=== PATIENT | female | born 1950 | race Caucasian/White ===

== ENCOUNTER 2018-01-10 09:51 | Emergency (ER) | payer MEDICARE, OTHER ==
[~2018-01-10] VITALS: Ht 160 cm; Wt 55.5 kg
[2018-01-10 09:57] VITALS: BP 125/61; TEMP 98.2
[2018-01-10] MEDS ORDERED: BUSPAR DIVIDOSE15 MG PO (10:04)
[2018-01-10] MEDS ORDERED: TEMOVATE0.05% TOP (10:05)
[2018-01-10] MEDS ORDERED: PROCTOCREAM-HC2.5% TOP (10:05)
[2018-01-10] MEDS ORDERED: SINGULAIR 110 MG/TAB PO (10:06)
[2018-01-10] MEDS ORDERED: COZAAR 50MG50 MG/TAB PO (10:06)
[2018-01-10] MEDS ORDERED: VALTREX 50500 MG/TAB PO (10:06)
[2018-01-10] MEDS ORDERED: PREVACID 30MG30 M1 PO (10:06)
[2018-01-10] MEDS ORDERED: OGEN 0.6250.75 MG PO (10:07)
[2018-01-10] MEDS ORDERED: FLONASEALLERGY NS (10:07)
[2018-01-10] MEDS ORDERED: NORVASC 10MG10 MG PO (10:08)
[2018-01-10] MEDS ORDERED: KLONOPIN 0.5MG0.5 MG PO (10:08)
[2018-01-10] MEDS ORDERED: KLONOPIN 1MG1 MG PO (10:08)
[2018-01-10] MEDS ORDERED: MYCOLOG CREAM 115 GM TOP (10:09)
[2018-01-10] MEDS ORDERED: AMBIEN 10MG10 MG PO (10:09)
[2018-01-10] MEDS ORDERED: BACTROBAN NASA0.9 GM TOP (10:09)
[2018-01-10] MEDS ORDERED: PROAIR HFA0.09 MG/AC INH (10:09)
[2018-01-10] MEDS ORDERED: VITAMIN C500 MG PO (10:10)
[2018-01-10] MEDS ORDERED: MULTIVITAMIN1 CTB PO (10:10)
[2018-01-10] MEDS ORDERED: CALCIUM 600MG+D1 TAB PO (10:10)
[2018-01-10] MEDS ORDERED: MERIBIN5 MG PO (10:11)
[2018-01-10] MEDS ORDERED: GLUCOSAMINE & C1 TAB PO (10:12)
[2018-01-10] MEDS ORDERED: PROBIOTIC FORMU1 CAP PO (10:12)
[2018-01-10] MEDS ORDERED: REFRESH TEARS 330 ML OU (10:12)
[2018-01-10] MEDS ORDERED: FLEXERIL 1010 MG/TAB PO (11:03)
[2018-01-10] MEDS ORDERED: MEDROL 4MG DOSPA4 MG PO (11:03)
[2018-01-10 11:30] VITALS: PULSE 67
== END 2018-01-10 11:29 | disposition home or self-care (01) ==
LOC: COL.ER 09:51
DX: M54.12 Radiculopathy, cervical region (principal); I10 Essential (primary) hypertension; Z79.51 Long term (current) use of inhaled steroids; Z79.52 Long term (current) use of systemic steroids
CPT/HCPCS: J1885

== ENCOUNTER → 2019-07-25 | Outpatient (CLI) | payer MEDICARE, OTHER ==
[~2019-07-25] MED LIST: AMBIEN 10MG10 MG PO; BACTROBAN NASA0.9 GM TOP; BUSPAR DIVIDOSE15 MG PO; CALCIUM 600MG+D1 TAB PO; COZAAR 50MG50 MG/TAB PO; FLEXERIL 1010 MG/TAB PO; FLONASEALLERGY NS; GLUCOSAMINE & C1 TAB PO; KLONOPIN 0.5MG0.5 MG PO; KLONOPIN 1MG1 MG PO; MEDROL 4MG DOSPA4 MG PO; MERIBIN5 MG PO; MULTIVITAMIN1 CTB PO; MYCOLOG CREAM 115 GM TOP; NORVASC 10MG10 MG PO; OGEN 0.6250.75 MG PO; PREVACID 30MG30 M1 PO; PROAIR HFA0.09 MG/AC INH; PROBIOTIC FORMU1 CAP PO; PROCTOCREAM-HC2.5% TOP; REFRESH TEARS 330 ML OU; SINGULAIR 110 MG/TAB PO; TEMOVATE0.05% TOP; VALTREX 50500 MG/TAB PO; VITAMIN C500 MG PO
== END ==
LOC: COL.RAD 13:00
DX: M47.812 Spondylosis without myelopathy or radiculopathy, cervical region (principal); M48.02 Spinal stenosis, cervical region

== ENCOUNTER → 2019-09-19 | Outpatient (CLI) | payer MEDICARE, OTHER | LOC: COL.RAD 09:00 | DX: Z01.818 Encounter for other preprocedural examination (principal); M75.100 Unspecified rotator cuff tear or rupture of unspecified shoulder, not specified as traumatic ==

== ENCOUNTER → 2021-09-02 | Outpatient (CLI) | payer MEDICARE, OTHER ==
[2021-09-02 09:46] LABS: CREATININE, serum 0.74 mg/dL (0.57-1.11)
== END ==
LOC: COL.LAB 09:10
PROVIDERS: Neurological Surgery
DX: I10 Essential (primary) hypertension (principal)

== ENCOUNTER → 2021-09-18 | Outpatient (CLI) | payer MEDICARE, OTHER | LOC: COL.RAD 08:30 | DX: N73.8 Other specified female pelvic inflammatory diseases (principal); R59.0 Localized enlarged lymph nodes ==

== ENCOUNTER → 2021-10-17 | Outpatient (CLI) | payer MEDICARE | LOC: COL.RAD 09:37 | DX: Z12.2 Encounter for screening for malignant neoplasm of respiratory organs (principal); I25.10 Atherosclerotic heart disease of native coronary artery without angina pectoris; Z87.891 Personal history of nicotine dependence ==

== ENCOUNTER 2022-11-16 08:52 | Inpatient (IN) | payer MEDICARE, OTHER ==
[~2022-11-16] VITALS: Ht 160 cm; Wt 63.3 kg
[2022-11-16] VITALS (11 sets, daily range): BP systolic 93–137; BP diastolic 42–62; PULSE 88–117; TEMP 98.7–99.8
[2022-11-16 09:48] LABS: HEMATOCRIT 44.5 % (37.0-47.0); HEMOGLOBIN 15.1 g/dl (12.5-16.0); MEAN CELL VOLUME 87 fl (80.0-100.0); MEAN CORPUSCULAR HEMOGLOBIN 30 pg (27-31); MEAN CORPUSCULAR HGB CONC 34 g/dl (33.0-37.0); MEAN PLATELET VOLUME 10.4 fl (7.4-10.4); PLATELET COUNT 406 K/mm3 (130-400); RED BLOOD COUNT 5.11 M/mm3 (4.10-5.30); REDCELL DISTRIBUTION WIDTH-CV 13.8 % (11.5-14.5)
[2022-11-16 10:15] LABS: ALBUMIN 3.2 gm/dL (3.4-4.8); BILIRUBIN,TOTAL 0.6 mg/dL (0.2-1.2); C-REACTIVE PROTEIN 24.69 mg/dL (0.00-0.50); CALCIUM 9.8 mg/dL (8.4-10.2); CREATININE, serum 2.09 mg/dL (0.57-1.11); POTASSIUM 3.7 mmol/L (3.5-4.5); TOTAL PROTEIN 7.1 gm/dL (6.2-8.1)
[2022-11-16 10:45] LABS: BAND 4 % (0-10); LYMPHOCYTE 30 % (20.0-51.0); NEUTROPHILS 59 % (42.0-75.2); PLATELET ESTIMATE INCREASED (NORMAL)
[2022-11-16] MEDS ORDERED: ADDERALL XR20 MG PO (12:35)
[2022-11-16] MEDS ORDERED: LIPITOR20 MG PO (12:35)
[2022-11-16] MEDS ORDERED: ESTRACE 1MG1 MG/TAB PO (12:40)
[2022-11-16] MEDS ORDERED: PROTONIX 40MG T40 MG PO (12:40)
[2022-11-16] MEDS ORDERED: LEXAPRO 10MG10 MG PO (12:43)
--- NOTE | 2022-11-16 14:11 | NUR ---
Patient admitted to room 343. She is Alert & oriented. Her spouse at bedside. Admission completed. Patient med rec up dated to the best of my ability. Patient did not bring a medication list & not feeling well enough to be fully involved in answering my questions about her medications. SHe reports [place] care doctor is in [place], but does she a doctor in [place] if needed. ordered NG tube patient did have some dificulty with insertion due to being anxious, morphine was used to assist in placement after was made aware of difficulty with insertion, the morphine did relax patient enough to get NG placed. Ng liquid output obtained. She is resting now.
--- NOTE | 2022-11-16 14:20 | NUR ---
rounded plan of care reviewed with patient, She denies needs at this time. NG remains to [facility].
--- NOTE | 2022-11-16 15:40 | NUR ---
Patient taken to the Or with Pacu nurses. Patient spouse has gone home & phine number left
[2022-11-17] VITALS (737 sets, daily range): BP systolic 69–113; BP diastolic 39–54; PULSE 86–103; TEMP 98.4–100.1; O2SAT 35–100
--- NOTE | 2022-11-17 00:43 | NUR ---
0035 PTS BLOOD PRESSURE ON BP MACHINE RESULTED AT 70S/40S RN GOT MANUAL BLOOD PRESSURE WAS BLOOD PRESSURE WAS STILL SOFT AT 72/47. MD HAIRSTON NOTIFIED NEW ORDERS PLACED.
--- NOTE | 2022-11-17 01:35 | NUR ---
0130 MD HAIRSTON NOTIFIED OF PTS BLOOD PRESSURE AFTER 500 CC BOLUS STILL BEING 74/45. CURRENTLY FLUIDS D5NS W 20MEQ K INCREASED TO 150ML AN HOUR. RN TO NOTIFY IF ANYTHING CHANGES AND IF BLOOD PRESSURE REMAINS LOW AT 0400 VITALS.
--- NOTE | 2022-11-17 02:13 | NUR ---
0140 PT BLADDER SCANNED WITH 95 ML IN BLADDER
--- NOTE | 2022-11-17 04:01 | NUR ---
0358 MD HAIRSTON NOTIFIED OF PTS BLOOD PRESSURE STILL 70S/40S SEE ORDERS FOR NEW ORDERS
--- NOTE | 2022-11-17 04:38 | NUR ---
8660 RN RECEIVED CALL FROM MD HAIRSTON TO PLACE A CONSULT TO HOSPITALIST AND CALL CHANNEL MARKETING COORDINATOR DANNIE GILMAN [phone] THIS RN CONTACTED CHANNEL MARKETING COORDINATOR.
--- NOTE | 2022-11-17 05:47 | NUR ---
0500 NEW IV STARTED IN L AC, LABS DRAWN WHILE STARTING IV. PTS IV IN L HAND REMOVED DUE TO REDNESS. 0515 ICU NURSE AT BEDSIDE TO ASSIST TAKING PATIENT DOWN TO ICU ROOM [id number] BEDSIDE REPORT GIVEN TO MACHINE RIVETER
[2022-11-17 06:15] LABS: MEAN CELL VOLUME 91 fl (80.0-100.0); MEAN CORPUSCULAR HGB CONC 33 g/dl (33.0-37.0); MEAN PLATELET VOLUME 10.7 fl (7.4-10.4); RED BLOOD COUNT 3.67 M/mm3 (4.10-5.30); REDCELL DISTRIBUTION WIDTH-CV 13.9 % (11.5-14.5)
[2022-11-17 06:19] LABS: HEMATOCRIT 33.4 % (37.0-47.0); MEAN CORPUSCULAR HEMOGLOBIN 30 pg (27-31)
[2022-11-17 06:20] LABS: HEMOGLOBIN 10.9 g/dl (12.5-16.0); PLATELET COUNT 210 K/mm3 (130-400)
[2022-11-17 06:36] LABS: CALCIUM 7.3 mg/dL (8.4-10.2); CREATININE, serum 1.58 mg/dL (0.57-1.11)
[2022-11-17 06:40] LABS: BAND 62 % (0-10); LYMPHOCYTE 4 % (20.0-51.0); METAMYELOCYTE 4 % (0-0); NEUTROPHILS 26 % (42.0-75.2)
[2022-11-17 06:41] LABS: PLATELET ESTIMATE NORMAL (NORMAL)
[2022-11-17 06:43] LABS: TOXIC GRANULATION PRESENT
--- NOTE | 2022-11-17 06:58 | NUR ---
HELPED NURSE TRINIDAD TAKE PT DOWNSTAIR IN BED. PT SHEET TRASNFERED FROM SURG BED TO ICU 08. PT BLOOD PRESSURE LOW 89/45 (51) ON ARRIVAL. NURSE STATED PT HAS BEEN TRENDING LOW SINCE 29. NURSE TRINIDAD STATED THAT SHE NOTIFIED PHYSICIAN WITH ORDERS FOR A FLUID BOLUS AND IF PT CONTINUES TO TREND LOW TO SEND PT TO ICU. PT IS IN PAIN, AND MORPHINE NEEDED FOR PAIN CONTROL. PT IS NOW RESTING IN BED, WITH LEVOPHED STARTED AND TITRATED , NS AND LR BOLUSED PER ORDERS.
--- NOTE | 2022-11-17 08:00 | NUR ---
PT HAVING PICC LINE PLACED AT THIS TIME. PT STATES HER FINE IS TOLERABLE AT THIS TIME AND DOES NOT NEED PAIN MEDICATION. PT NOT VOIDED SINCE YESTERDAY AT APPROX 1800. PT STATES SHE WILL ATTEMPT TO VOID VIA BEDPAN ONCE PICC IS PLACED. PT ADVISED THAT IF SHE IS UNABLE TO VOID, THEN HAGER WILL BE PLACED. PT AGREEABLE TO THIS. NG TUBE PRESENT AND TO LIS. SLIGHT OUTPUT PRESENT FROM NG; GREEN IN COLOR BUT NOT ENOUGH TO MEASURE. PT AND UPDATED ON PLAN OF CARE. ALL QUESTIONS ANSWERED APPROPRIATELY.
[2022-11-17 09:34] LABS: COLLECTION METHOD CLEAN CATCH
[2022-11-17 09:53] LABS: MUCOUS Present (NOT PRESENT); URINE BACTERIA Occasional /hpf (NONE SEEN); URINE RBC 0-2 /hpf (0-2)
[2022-11-17 09:55] LABS: URINE APPEARANCE Clear (CLEAR/HAZY); URINE COLOR Amber (YELLOW); URINE GLUCOSE Negative (NEGATIVE); URINE KETONE Negative (NEGATIVE); URINE PROTEIN(semi-quant) 1+ (NEGATIVE); URINE UROBILINOGEN 0.2 E.U/dL (0.2-1.0)
[2022-11-17 09:56] LABS: URINE BLOOD Negative (NEGATIVE); URINE NITRATE Positive (NEGATIVE)
--- NOTE | 2022-11-17 14:53 | NUR ---
SW met with patient to complete intake. Patient reports that she lives at home with her Michoacano ([phone]) in [place]. She is normally independent with her ADL's and does not utilize any DME to assist with mobility. Patient does not utilize any home oxygen. PCP is Dr. Christina Khan MD out of and she utilizes [facility] pharmacy. She reports that she does have a DPOA-HC established listing her as her agent.
--- NOTE | 2022-11-17 16:00 | NUR ---
HAGER CATHETER PLACED FOR ACCURATE I/O DUE TO USE OF VASOPRESSOR. PT TOLERATED WELL AND OFFERS NO COMPLAINTS.
--- NOTE | 2022-11-17 20:30 | NUR ---
PT ASSESSMENT COMPLETE. PT IS ALERT AND ORIENTED. PT IS DROWSY AND LETHARGIC. PT STATES SHE HAS 9/10 ABDOMINAL PAIN AND THAT SHE IS JUST UNCOMFORTABLE. PAIN MEDICATIONS GIVEN PER ORDER. PT TEMP IS 100.1, WILL NOTIFY PROVIDER IF IT CONTINUES TO INCREASE. PTS VITAL SIGNS ARE STABLE AND DRIPS ARE RUNNING ACCORDING TO DRIP TITRATION FLOW SHEET. PTS CALL LIGHT IS WITHIN REACH
[2022-11-18] VITALS (1181 sets, daily range): BP systolic 71–115; BP diastolic 49–70; PULSE 87–184; TEMP 97.6–98.6; O2SAT 75–100
--- NOTE | 2022-11-18 01:20 | NUR ---
PT HAS HAD TWO SMALL RUNS OF SVT WITH HEART RATE GOING UP TO 168. RUNS LAST APRROXIMATELY 3-5 SECONDS. PT DENIES CHEST PAIN OR PALPATATIONS. PT STATES SHE IS JUST SLEEPY AND HAVING TROUBLE SLEEPING. JUDAH GILMAN AWARE. BENEDRYL GIVEN FOR SLEEP.
--- NOTE | 2022-11-18 02:25 | NUR ---
PTS BP IS ABOVE PARAMATERS FOR LEVOPHED. PT TITRATED DOWN AND NOW PLACED IN STAND BY.
--- NOTE | 2022-11-18 03:15 | NUR ---
PT BEGAN TO GO BETWEEN SVT AND SINUS RHYTHM MORE FREQUENT. JUDAH GILMAN NOTIFIED AND ORDERED BMP AND MAGNESIUM LABS AND A 12 LEAD EKG. PT SUSTAINING IN THE 150-180s WITH SHORT CONVERSIONS TO SINUS RHYTHM. THE EKG READ A.FIB RVR. JUDAH GILMAN NOTIFIED. NEW ORDERS FOR A CARDIZEM DRIP, HEPARIN DRIP, AND AND INCREASE IN FLUID RATE. PT REMAINED IN THE 160s-180s. PROVIDER CARDIZEM INCREASED. AFTER SPEAKING WITH JUDAH GILMAN ABOUT CONCERNS OF HEPARIN DRIP WITH PTS RECENT ABDOMINAL SURGERY, PROVIDER DECIDED THE RISK FOR CLOTS WITH THE A.FIB RVR OUTWEIGHED POSSIBLE BLEEDING RISK. PT CURRENTLY SHOWS NO SIGNS OR SYMPTOMS OF BLEEDING. 0348- PTS DRIPS WERE TITRATED AND INITIATED PER ORDERS (VIEW DRIP TITRATION FLOW SHEET) HEART RATE NOW RANGING BETWEEN 110-140. PT ALERT AND ORIENTED. BLOOD PRESSURE AND O2 SAT WNL.
[2022-11-18 04:02] LABS: HEMOGLOBIN 10.6 g/dl (12.5-16.0); MEAN CELL VOLUME 93 fl (80.0-100.0); MEAN CORPUSCULAR HEMOGLOBIN 29 pg (27-31); MEAN CORPUSCULAR HGB CONC 31 g/dl (33.0-37.0); MEAN PLATELET VOLUME 10.5 fl (7.4-10.4); PLATELET COUNT 159 K/mm3 (130-400); RED BLOOD COUNT 3.64 M/mm3 (4.10-5.30); REDCELL DISTRIBUTION WIDTH-CV 13.9 % (11.5-14.5)
[2022-11-18 04:16] LABS: PARTIAL THROMBOPLASTIN TIME 37.2 SECONDS (26.0-37.0)
[2022-11-18 04:18] LABS: CALCIUM 6.8 mg/dL (8.4-10.2); CREATININE, serum 0.59 mg/dL (0.57-1.11); MAGNESIUM 1.4 mg/dL (1.6-2.6); POTASSIUM 3.7 mmol/L (3.5-4.5)
[2022-11-18 04:49] LABS: BAND 35 % (0-10); LYMPHOCYTE 1 % (20.0-51.0); NEUTROPHILS 62 % (42.0-75.2)
[2022-11-18 04:50] LABS: HYPOCHROMIA 2+; PLATELET ESTIMATE NORMAL (NORMAL)
--- NOTE | 2022-11-18 06:00 | NUR ---
ASKED PT IF THEY WERE EXPERIENCING PAIN. PT RATED PAIN ON 5-6/10. ASKED PT IF THEY WOULD LIKE THEIR PAIN MEDICATIONS. PT REFUSED PAIN MEDICATIONS.
--- NOTE | 2022-11-18 06:23 | NUR ---
PT HAD A DIFFERENCE GREATER THAN 5% IN WEIGHT CHANGE. SCD MACHINE WAS ADDED TO BED AFTER WEIGHT ON 11/17/22.
[2022-11-18 07:41] LABS: CALCIUM 6.7 mg/dL (8.4-10.2); CREATININE, serum 0.58 mg/dL (0.57-1.11); POTASSIUM 3.7 mmol/L (3.5-4.5)
[2022-11-18 08:17] LABS: TROPONIN-I 0.276 ng/mL (0.00-0.033)
--- NOTE | 2022-11-18 08:35 | NUR ---
Patient alert but drowsy this morning. Complains of gerd like symptoms. Having scant output from the OG. looked at wall suction Patient noted to have several episodes where heart rate dropped to the 20's and 30's briefly before returning to the 100's. Patient alert at these times. BP remained stable. Dr. Gomez and Colleen, RN notified. Will come to see patient at this time.
--- NOTE | 2022-11-18 09:42 | NUR ---
Initiated Amiodarone bolus and obseved almost immediately a pause and a brief heart rate in the 20's before returning to the 120's. Bolus was stopped and Cardiology notified. Will continue with the amiodarone Per. Dr. Wiley. Cardiac pads attached to patient during infusion.
--- NOTE | 2022-11-18 21:00 | NUR ---
PT ASSESSMENT COMPLETED. PT CONTINUES TO BE IN A.FIB/FLUTTER RVR. HEART RATE RANGES FROM 110-140. DRIPS RUNNING PER FLOWSHEET. PT IS ALERT AND ORIENTED AND ABLE TO ANSWER QUESTIONS APPROPRIATELY. PT REQUESTED PAIN MEDICATION. CALL LIGHT WITHIN REACH
[2022-11-19] VITALS (1057 sets, daily range): BP systolic 105–118; BP diastolic 49–66; PULSE 70–115; TEMP 98–98.3; O2SAT 59–100
[2022-11-19 05:37] LABS: HEMOGLOBIN 10.9 g/dl (12.5-16.0); MEAN CELL VOLUME 92 fl (80.0-100.0); MEAN CORPUSCULAR HEMOGLOBIN 29 pg (27-31); MEAN CORPUSCULAR HGB CONC 32 g/dl (33.0-37.0); MEAN PLATELET VOLUME 11.4 fl (7.4-10.4); PLATELET COUNT 150 K/mm3 (130-400); RED BLOOD COUNT 3.73 M/mm3 (4.10-5.30); REDCELL DISTRIBUTION WIDTH-CV 14.4 % (11.5-14.5)
[2022-11-19 05:38] LABS: HEMATOCRIT 34.2 % (37.0-47.0)
[2022-11-19 05:49] LABS: BAND 8 % (0-10); EOSINOPHIL 1 % (0-4); HYPOCHROMIA 2+; LYMPHOCYTE 5 % (20.0-51.0); NEUTROPHILS 85 % (42.0-75.2); PLATELET ESTIMATE NORMAL (NORMAL)
[2022-11-19 05:54] LABS: ALBUMIN 1.4 gm/dL (3.4-4.8); BILIRUBIN,TOTAL 0.3 mg/dL (0.2-1.2); CREATININE, serum 0.54 mg/dL (0.57-1.11); POTASSIUM 3.2 mmol/L (3.5-4.5)
--- NOTE | 2022-11-19 10:00 | NUR ---
Heparin remains subtherapeutic for the last several lab checks. Heparin increased per protocol and has been running consistently at the correct rate. All possible variables have been assessed including drawing with a lab stick and not from the PICC line. However, hep xa's continue to be subtherapeutic. Hospitalist and pharmacy aware. Will attempt to swich to eliquis pending surgical approval.
--- NOTE | 2022-11-19 15:40 | NUR ---
Patient tolerating NG tube well; no nausua or GERD symptoms reported. Discussed plan of care with Dr. Horvath. Will clamp OG tube and can initiate PO meds. Discussed with cardiology; will Initiate PO Amiodarone and Eliquis and D/c IV amiodarone and heparin.
--- NOTE | 2022-11-19 17:00 | NUR ---
Resting in bed; denies any pain at this time. No nausea since clamping OG tube. Will continue to monitor.
--- NOTE | 2022-11-19 19:45 | NUR ---
Received report from APRIL Rothman.
--- NOTE | 2022-11-19 20:30 | NUR ---
Patient resting quietly in bed watching TV. Vitals within normal limits; continues to receive 2L oxygen via nasal cannula, tolerating well. She reports a mild headache - scheduled tylenol administered and bright lights turned down. NG to R nare is clamped at this time. Patient states she feels gas moving freely but that she is not uncomfortable. Pills given whole and orally, tolerated well. Midline and RLQ incisions are clean, dry, intact, and WIRE WORKER. Two bandaids noted to LUQ lap sites.
[2022-11-20] VITALS (668 sets, daily range): BP systolic 103–110; BP diastolic 38–54; PULSE 65–78; TEMP 98–98.9; O2SAT 71–100
[2022-11-20 05:05] LABS: HEMOGLOBIN 10.4 g/dl (12.5-16.0); MEAN CELL VOLUME 88 fl (80.0-100.0); MEAN CORPUSCULAR HEMOGLOBIN 29 pg (27-31); MEAN CORPUSCULAR HGB CONC 33 g/dl (33.0-37.0); MEAN PLATELET VOLUME 10.8 fl (7.4-10.4); PLATELET COUNT 147 K/mm3 (130-400); RED BLOOD COUNT 3.55 M/mm3 (4.10-5.30); REDCELL DISTRIBUTION WIDTH-CV 14.6 % (11.5-14.5)
[2022-11-20 05:17] LABS: HEMATOCRIT 31.1 % (37.0-47.0)
[2022-11-20 05:21] LABS: CALCIUM 7.4 mg/dL (8.4-10.2); CREATININE, serum 0.55 mg/dL (0.57-1.11); POTASSIUM 3.5 mmol/L (3.5-4.5)
[2022-11-20 05:30] LABS: BAND 5 % (0-10); LYMPHOCYTE 8 % (20.0-51.0); NEUTROPHILS 84 % (42.0-75.2)
[2022-11-20 05:31] LABS: PLATELET ESTIMATE NORMAL (NORMAL)
--- NOTE | 2022-11-20 08:57 | NUR ---
SW met with patient to [facility]. Patient reports that she lives at home with her Simon ([phone]) in [place]. Patient states that Simon has to help her with all of her ADL's and IADL's. She utilizes both a shower chair and standard walker at home to assist with showering and ambulation. Patient denies being able to drive. PCP is and she utilizes [facility] for prescriptions. She does not have a DPOA-HC established at this time and does not wish to create one until she has time to talk with her about it. Patient provided education and verbalizes her agreement.
--- NOTE | 2022-11-20 11:21 | NUR ---
SW met with patient to discuss home health vs. post acute rehab. Patient is open to either option pending her progress with therapy and doesn't "care where". Patient verbalizes that at the very least she will need home health.
--- NOTE | 2022-11-20 14:01 | NUR ---
SW made referral to [facility] for them to begin following the patient.
--- NOTE | 2022-11-20 16:35 | NUR ---
PT REPORT GIVEN TO APRIL SCANLON AND PT LEFT UNIT TO MEDICAL AT [id number]
--- NOTE | 2022-11-20 20:28 | NUR ---
PT USED BEDPAN FOR MOD FORMED STOOL. PT REPORTS FEELING WEAK AND DIDN'T WANT TO TRY USING BSC. DISCUSSED WITH PT IMPORTANCE OF GETTING OOB. SHE PROMPTLY ROLLED HER EYES IN RESPONSE. MEDICATED WITH HS MEDS INCLUDING OXYCODONE 5MG PO FOR PAIN TO ABD 5/10. HAS SMALL MIDLINE WITH HILLARY INTACT, 2 LAP SITES WITH BANDAID. FOUND PILLS IN PTS BED, PT DENIES THESE ARE HERS, PLACED IN MED DISPOSAL IN MED ROOM. HAS RT PICC, IVF INFUSING WITHOUT PROBLEM. PT WEARING SCDS. ABLE TO TURN SELF TO SIDE.
[2022-11-21 00:17] VITALS: BP 113/50; PULSE 82; TEMP 97.7
--- NOTE | 2022-11-21 00:30 | NUR ---
PT AWAKE, HAS TURNED HERSELF TO HER BACK. DENIES NEEDS AT THIS TIME.
--- NOTE | 2022-11-21 03:50 | NUR ---
PT REFUSES SCHEDULED ES TYLENOL, DENIES PAIN AT THIS TIME. HAS TURNED SELF TO BACK AND IS ABLE TO PULL SELF UP IN BED. DENIES NAUSEA, TAKING CLEAR LIQUIDS WITHOUT PROBLEM. ALLEY PATENT.
[2022-11-21 03:51] VITALS: BP 111/43; PULSE 77; TEMP 98.3
[2022-11-21 07:49] VITALS: BP 134/57; PULSE 76; TEMP 98.2
--- NOTE | 2022-11-21 08:30 | NUR ---
rounded, plan of care reviewed. Discussed Ivf rate & puentes removal. Will discuss with hospitalist. Will progress diet
--- NOTE | 2022-11-21 08:45 | NUR ---
called and made aware of patient heart rate. electrostatic powder coating technician called and reported heart rate up into 130. No new orders at this time & am morning medication to be given and will monitor.
--- NOTE | 2022-11-21 10:00 | NUR ---
Patient assisted up to chair. She was a 2 assist with alot of encouragement. She reports feeling to weak to get up, but did well once standing. Full bed bath provided with fresh linens. Assisted with hair combing and oral cares. India Lynn per orders. PICC to Int. Po intake enoucaraged. Pain medication given for her abdominal pain & headache. Scds ble. Will continue to monitor & encourage activity.
[2022-11-21 10:59] LABS: CALCIUM 7.3 mg/dL (8.4-10.2); CREATININE, serum 0.51 mg/dL (0.57-1.11); POTASSIUM 3.4 mmol/L (3.5-4.5)
[2022-11-21 11:21] VITALS: BP 122/58; PULSE 84; TEMP 97.9
--- NOTE | 2022-11-21 11:29 | NUR ---
Patient back to the bed with therapy. She reports being exhausted. K+ replacement per orders. Lasix as ordered. Patient not intersted in her lunch tray. Will monitor.
--- NOTE | 2022-11-21 12:02 | NUR ---
Patient up to bedside commode, She voided & had a large BM. Assisted with pericares. Patient reports feeling better after. Spoke to , she is rounding, no new orders. Will monitor.
[2022-11-21 15:16] VITALS: BP 123/50; PULSE 74; TEMP 97.8
--- NOTE | 2022-11-21 19:21 | NUR ---
Patient resting in bed. Requesting puentes be placed again, education given on why puentes was removed. Patient has been voiding frequently post lasix using bedside commode. She tolerated mashed potatoes for dinner. Po intake encouraged. Bedside report to lore
--- NOTE | 2022-11-21 20:30 | NUR ---
PT IN BATHROOM, HAVING LOOSE STOOLS AND VOIDING WITHOUT PROBLEM. HS MEDS GIVEN INCLUDING OXYCODONE 5MG PO FOR PAIN. HILLARY INTACT TO ABD. RT PICC INT. PTS HOME MEDS TAKEN TO PHARMACY.
[2022-11-21 20:34] VITALS: BP 129/52; PULSE 82; TEMP 98.1
[2022-11-22] VITALS (7 sets, daily range): BP systolic 112–129; BP diastolic 43–56; PULSE 71–82; TEMP 98–98.5
--- NOTE | 2022-11-22 03:21 | NUR ---
PT RESTING WITH EYES CLOSED, DID NOT WAKE FOR SCHEDULED ES TYLENOL AT THIS TIME.
--- NOTE | 2022-11-22 05:45 | NUR ---
LABS DRAWN FROM PICC LINE, FLAGYL INFUSING WITHOUT PROBLEM. PT DENIES NEED FOR PAIN MEDS AT THIS TIME.
[2022-11-22 06:42] LABS: MEAN CELL VOLUME 86 fl (80.0-100.0); MEAN CORPUSCULAR HEMOGLOBIN 29 pg (27-31); MEAN CORPUSCULAR HGB CONC 34 g/dl (33.0-37.0); MEAN PLATELET VOLUME 12.1 fl (7.4-10.4); PLATELET COUNT 126 K/mm3 (130-400); RED BLOOD COUNT 3.76 M/mm3 (4.10-5.30); REDCELL DISTRIBUTION WIDTH-CV 14.6 % (11.5-14.5)
[2022-11-22 06:45] LABS: HEMATOCRIT 32.3 % (37.0-47.0)
[2022-11-22 06:53] LABS: CALCIUM 7.1 mg/dL (8.4-10.2); CREATININE, serum 0.5 mg/dL (0.57-1.11); POTASSIUM 3.3 mmol/L (3.5-4.5)
[2022-11-22 08:41] LABS: BAND 5 % (0-10); EOSINOPHIL 1 % (0-4); NEUTROPHILS 74 % (42.0-75.2)
[2022-11-22 08:42] LABS: LYMPHOCYTE 10 % (20.0-51.0)
[2022-11-22 08:43] LABS: ANISOCYTOSIS 1+; PLATELET ESTIMATE DECREASED (NORMAL)
--- NOTE | 2022-11-22 11:15 | NUR ---
PATIENT LAYING IN BED WITH EYES CLOSED AND ROOM LIGHTS OFF. PATIENT APPEARS TO HAVE NO S/S OR NEEDS OR CONCERNS AT THIS TIME.
--- NOTE | 2022-11-22 17:18 | NUR ---
PATIENT OXYGEN TURNED OFF AND HE IS SITTING UPRIGHT EATING A BROWNIE AND ICE CREAM AT THIS TIME. CALL LIGHT REMAINS IN LAP AND PATIENT STATES UNDERSTANDING ABOUT CALLING THIS NURSE WITH ANY SOB.
--- NOTE | 2022-11-22 20:44 | NUR ---
PRESENTED TO ROOM. PT IS IN BED SLEEPING WITH EYES CLOSED AND SNORING. VITALS ARE WITHIN NORMAL LIMITS. NO SIGNS OF SHORTNESS OF BREATH. PT LEFT TO SLEEP AND DID NOT WAKE FOR TX. NO WHEEZING HEARD. BS ARE SLIGHTLY DIMINISHED T/O
[2022-11-23] VITALS (12 sets, daily range): BP systolic 112–126; BP diastolic 41–62; PULSE 70–93; TEMP 97.5–98.9
--- NOTE | 2022-11-23 03:21 | NUR ---
0248 - PT ASLEEP UPON ARRIVAL TO ROOM. PT AWAKENED. SHE IS COMPLAINING OF R SIDE PAIN AT THIS TIME. WHEN LISTENING TO BREATH SOUNDS AND ASSESSING PT FLINCH IN PAIN BECAUSE OF R SIDE OF ABD. SHE ASKED ABOUT PAIN MEDS. STATED THAT I WOULD NOTIFY RN OF PT'S PAIN. SHE DID NOT WANT HER TREATMENT AT THIS TIME. EDUCATED PT WHEN HER NEXT TREATMENT WOULD BE, AND THAT THEY WERE AVAILABLE TO HER IF SHE NEEDED. PT VERBALIZED UNDERSTANDING. NOTIFIED RN OF PATIENT'S PAIN AND SHE WAS ASKING FOR HER PAIN MEDS. RN VERBALIZED UNDERSTANDING.
[2022-11-23 06:45] LABS: CALCIUM 7.1 mg/dL (8.4-10.2); CREATININE, serum 0.49 mg/dL (0.57-1.11); POTASSIUM 3.8 mmol/L (3.5-4.5)
[2022-11-23 08:37] LABS: HEMOGLOBIN 10.6 g/dl (12.5-16.0); MEAN CELL VOLUME 89 fl (80.0-100.0); MEAN CORPUSCULAR HEMOGLOBIN 29 pg (27-31); MEAN CORPUSCULAR HGB CONC 33 g/dl (33.0-37.0); MEAN PLATELET VOLUME 11.5 fl (7.4-10.4); PLATELET COUNT 163 K/mm3 (130-400); RED BLOOD COUNT 3.65 M/mm3 (4.10-5.30); REDCELL DISTRIBUTION WIDTH-CV 14.7 % (11.5-14.5)
[2022-11-23 08:45] LABS: HEMATOCRIT 32.3 % (37.0-47.0)
--- NOTE | 2022-11-23 08:47 | NUR ---
made aware of critical elevated wbc,ct order obtained.
--- NOTE | 2022-11-23 09:26 | NUR ---
Patient assisted back to bed. She reports being to uncomfortable in chair to sit any longer. She ate about half of her breakfast. Denies nausea. She was up to the bathroom this am & voided and did have a loose stool. Walker used, steady on her feet. Assisted with pericares. Picc to INT. Abdomen incisions open to air. Marco A intact to midline. Reports itching to insisions. Will monitor.
[2022-11-23 09:53] LABS: BAND 9 % (0-10); EOSINOPHIL 1 % (0-4); LYMPHOCYTE 4 % (20.0-51.0); MYELOCYTE 2 % (0-0); NEUTROPHILS 78 % (42.0-75.2)
[2022-11-23 09:54] LABS: PLATELET ESTIMATE NORMAL (NORMAL)
--- NOTE | 2022-11-23 10:40 | NUR ---
Patietn trying to drink her oral contrast, but reports it is making her nauseated. Iv zofran given per orders, educated her on the importance of trying to drink. Will see if zofran helps.
--- NOTE | 2022-11-23 11:07 | NUR ---
Patient to CT scan with electrical controls technician.
--- NOTE | 2022-11-23 12:25 | NUR ---
made aware CT scan completed. Noo at this time for potential drain placement.
--- NOTE | 2022-11-23 12:51 | NUR ---
Spoke to and radiology about abcess drain placement. Nancy radiology nurse assisted to set up procedure. Plans for 1330. Radiology busy today, but trying to fit her inbetween scheduled procedures.
--- NOTE | 2022-11-23 13:45 | NUR ---
Patient to CT for drain placement, will await her return
--- NOTE | 2022-11-23 14:00 | NUR ---
PT WAS GIVEN 1 MG VERSED AND 50 MCG FENTANYL FOR DISCOMFORT. MEDS GIVEN THRU THE PICC LINE, NOTED POSITIVE BLOOD RETURN PRIOR TO MEDS.
--- NOTE | 2022-11-23 15:15 | NUR ---
Spoke to on phone about patient, plan of care reviewed. Patietn dinner ordered. She reports appetite. She will be npo oooo. Patient was assisted to the bathroom, voided. No stool. Will monitor.
--- NOTE | 2022-11-23 16:50 | NUR ---
Patient given education on lasix, importance of taking. She was willing to take, but not thrilled. She did well with dinner, and ate her entire tray. Denies the need for pain medication at this time.
--- NOTE | 2022-11-23 18:28 | NUR ---
Patient exhausted from voiding frequently post lasix. Pain elevated from getting up and down. medicaiton per orders. Will monitor
--- NOTE | 2022-11-23 18:57 | NUR ---
bedside report to demetrio to resume cares
--- NOTE | 2022-11-23 20:58 | NUR ---
pt resting in bed. meds given and assessment complete. vss and tele in place. abdominal incisions are cdi. picc to jennifer flushes well w good blood return. fall precautions in place. call light in reach. no needs at this time.
[2022-11-24] VITALS (14 sets, daily range): BP systolic 90–120; BP diastolic 42–58; PULSE 72–80; TEMP 97.7–98.6
[2022-11-24 04:47] LABS: HEMOGLOBIN 10.4 g/dl (12.5-16.0); MEAN CELL VOLUME 87 fl (80.0-100.0); MEAN CORPUSCULAR HEMOGLOBIN 29 pg (27-31); MEAN CORPUSCULAR HGB CONC 34 g/dl (33.0-37.0); MEAN PLATELET VOLUME 11.6 fl (7.4-10.4); PLATELET COUNT 168 K/mm3 (130-400); RED BLOOD COUNT 3.55 M/mm3 (4.10-5.30); REDCELL DISTRIBUTION WIDTH-CV 14.6 % (11.5-14.5)
[2022-11-24 04:54] LABS: HEMATOCRIT 30.7 % (37.0-47.0)
--- NOTE | 2022-11-24 05:00 | NUR ---
called nelida SO on pts critical wbc of 25.8. will continue abx pt is currently on and update day shift.
--- NOTE | 2022-11-24 06:03 | NUR ---
pt had an uneventful night. denies pain. picc caps changed this am. pt has been npo since midnight. no needs this morning. call light in reach.
[2022-11-24 06:16] LABS: BAND 8 % (0-10); EOSINOPHIL 1 % (0-4); LYMPHOCYTE 6 % (20.0-51.0); METAMYELOCYTE 1 % (0-0); NEUTROPHILS 81 % (42.0-75.2); PLATELET ESTIMATE NORMAL (NORMAL)
--- NOTE | 2022-11-24 14:59 | NUR ---
Facility Sales And Admin met with patient to review discharge plan. SW advised patient that an IPR screen has been placed and then provided patient information about IPR vs SNF as patient is unsure if she can tolerate three hours of therapy a day. Patient does feel that she cannot return home in her current condition. Patient advised she will talk with her spouse patrick about local SNFs and follow up with HADLEY.
--- NOTE | 2022-11-24 19:33 | NUR ---
pt resting in bed trying to sleep. assessment complete. pt reports pain around incisional sites, scheduled tylenol given. vss and tele in place. abdominal incisions are cdi. accordian drain to right side w no output. scds to ble. fall precautions in place. right buttock is reddened, barrier cream applied. reports passing gas and having some incontinent stools today. PICC to jennifer, purple lumen difficulty flushing. pt denies any needs. call light in reach.
[2022-11-25 00:11] VITALS: BP 110/47; PULSE 77; TEMP 98.7
--- NOTE | 2022-11-25 00:30 | NUR ---
pt reports sleeping well, denies pain. no needs at this time.
[2022-11-25 03:27] VITALS: BP 120/51; PULSE 70; TEMP 98.2
[2022-11-25 07:00] LABS: HEMOGLOBIN 10.1 g/dl (12.5-16.0); MEAN CELL VOLUME 89 fl (80.0-100.0); MEAN CORPUSCULAR HEMOGLOBIN 29 pg (27-31); MEAN CORPUSCULAR HGB CONC 32 g/dl (33.0-37.0); MEAN PLATELET VOLUME 11.8 fl (7.4-10.4); PLATELET COUNT 224 K/mm3 (130-400); RED BLOOD COUNT 3.52 M/mm3 (4.10-5.30)
[2022-11-25 07:02] LABS: HEMATOCRIT 31.2 % (37.0-47.0)
[2022-11-25 07:12] LABS: CALCIUM 7.3 mg/dL (8.4-10.2); CREATININE, serum 0.5 mg/dL (0.57-1.11); POTASSIUM 3.4 mmol/L (3.5-4.5)
[2022-11-25 07:29] VITALS: BP 119/53; PULSE 63; TEMP 97.9
[2022-11-25 07:54] LABS: BAND 1 % (0-10); HYPOCHROMIA 1+; LYMPHOCYTE 4 % (20.0-51.0); MYELOCYTE 1 % (0-0); NEUTROPHILS 91 % (42.0-75.2); PLATELET ESTIMATE NORMAL (NORMAL)
--- NOTE | 2022-11-25 08:08 | NUR ---
Patients bilateral upper extremities cap refil <3, bilateral lower extremities >3. Upon assessment, left pedal pulse was bounding. Will reasses patients right pedal pulse as it was difficult to palpate at time of assessment. Bed alarm was engaged at this time and call light in reach.
[2022-11-25 11:20] VITALS: BP 117/48; PULSE 74; TEMP 97.7
--- NOTE | 2022-11-25 15:42 | NUR ---
Conciliator followed up with patient to review discharge plan. Patient again does not feel she could tolerate three hours of therapy on the IPR unit. SW provided Medicare.gov list of SNFs and patient stated she will review it.
[2022-11-25 16:00] VITALS: BP 105/44; PULSE 70; TEMP 98.5
--- NOTE | 2022-11-25 18:36 | NUR ---
PATIENT ALERT AND ORIENTED X4. VSS. PATIENT HERE FOR SBO, INCARCERATED HERNIA. LAP SITES X2 WITH HILLARY INTACT. MIDLINE INCISION WITH HILLARY INTACTS, SCANT AMOUNT OF DRAINAGE (DRESSING APPLIED). LOW TRANSVERSE INCISION WITH SKIN GLUE, CDI. PATIENT IS TOLERATING SOLIDS. PATIENT REPORTS BURNING AND ITCHING IN RAHEEM AREA. WILL CONTACT HOSPITALIST FOR DIRECTION. CALL LIGHT IN REACH, BED ALARM ON.
--- NOTE | 2022-11-25 20:27 | NUR ---
pt resting in bed, reports feeling tired this afternoon. meds given and assessment complete. midline incision w gauze dressing in place, some drainage is present. a small knot is palpable just below the incision. x2 lap sites w karoline are open to air. transverse incision is cdi. drain still has no output in it. scds to ble. picc to jennifer flushes well w good blood return. vss and tele in place. fall precautions implemented. no needs at this time. call light in reach.
[2022-11-25 20:30] VITALS: BP 105/48; PULSE 72; TEMP 98.5
[2022-11-26] VITALS (7 sets, daily range): BP systolic 105–128; BP diastolic 41–63; PULSE 66–76; TEMP 98–99.5
[2022-11-26 07:37] LABS: HEMOGLOBIN 10.1 g/dl (12.5-16.0); MEAN CELL VOLUME 87 fl (80.0-100.0); MEAN CORPUSCULAR HEMOGLOBIN 29 pg (27-31); MEAN CORPUSCULAR HGB CONC 34 g/dl (33.0-37.0); MEAN PLATELET VOLUME 10.8 fl (7.4-10.4); RED BLOOD COUNT 3.47 M/mm3 (4.10-5.30); REDCELL DISTRIBUTION WIDTH-CV 14.8 % (11.5-14.5)
[2022-11-26 07:42] LABS: PLATELET COUNT 335 K/mm3 (130-400)
[2022-11-26 07:49] LABS: CALCIUM 7.4 mg/dL (8.4-10.2); CREATININE, serum 0.5 mg/dL (0.57-1.11); POTASSIUM 3.3 mmol/L (3.5-4.5)
--- NOTE | 2022-11-26 08:14 | NUR ---
CRITICAL WBC REPORTED TO DR. BRYSON.
[2022-11-26 08:32] LABS: BAND 3 % (0-10); LYMPHOCYTE 2 % (20.0-51.0); NEUTROPHILS 91 % (42.0-75.2); PLATELET ESTIMATE NORMAL (NORMAL)
--- NOTE | 2022-11-26 15:59 | NUR ---
Alterations Workroom Clerk met with patient to follow up on SNF placement. Patient is still reviewing options. Later in the afternoon, HADLEY followed up with patient's , Michoacano who advised they would like to have a referral sent to [facility]. HADLEY contacted Cesario at [facility] and faxed referral.
--- NOTE | 2022-11-26 18:12 | NUR ---
PATIENT TOLERATING ORAL INTAKE. PICC TO RIGHT UPPER ARM, PURPLE LUMEN FLUSHES BUT NOT WELL. RED LUMEN FLUSHES WITH GOOD BLOOD RETURN. PATIENT HAS HAD SEVERAL LOOSE STOOLS, AND HAS BEEN INCONTINENT OF URINE AND STOOL THROUGHOUT SHIFT. NYSTATIN CREAM APPLIED TO RAHEEM AREA.
--- NOTE | 2022-11-26 21:09 | NUR ---
Patient A/O, head to toe assessment done, see shift assessment, denies pain or discomfort, PICC to right upper arm both flushes well, purple port doesn't have good blood return, pericare done applied nystatin cream cream per order, denies further needs, call light and personal items within reach, will continue to monitor.
[2022-11-27] VITALS (7 sets, daily range): BP systolic 118–144; BP diastolic 45–67; PULSE 66–81; TEMP 97.5–98.8
--- NOTE | 2022-11-27 04:12 | NUR ---
Dressing change at this time with 4x4 gauze and tape, noted scant amount of serous sanguinuous drainage.
[2022-11-27 05:22] LABS: MEAN CELL VOLUME 90 fl (80.0-100.0); MEAN CORPUSCULAR HGB CONC 32 g/dl (33.0-37.0); MEAN PLATELET VOLUME 10.5 fl (7.4-10.4); RED BLOOD COUNT 3.45 M/mm3 (4.10-5.30); REDCELL DISTRIBUTION WIDTH-CV 14.7 % (11.5-14.5)
[2022-11-27 05:31] LABS: CALCIUM 7.5 mg/dL (8.4-10.2); CREATININE, serum 0.53 mg/dL (0.57-1.11); MAGNESIUM 1.4 mg/dL (1.6-2.6); POTASSIUM 3.1 mmol/L (3.5-4.5)
[2022-11-27 05:43] LABS: HEMATOCRIT 31.1 % (37.0-47.0); HEMOGLOBIN 9.9 g/dl (12.5-16.0); MEAN CORPUSCULAR HEMOGLOBIN 29 pg (27-31); PLATELET COUNT 460 K/mm3 (130-400)
--- NOTE | 2022-11-27 06:16 | NUR ---
Called Dr. Nathan for WBC critical result which is 20.8.
[2022-11-27 06:39] LABS: BAND 2 % (0-10); LYMPHOCYTE 6 % (20.0-51.0); METAMYELOCYTE 1 % (0-0); NEUTROPHILS 86 % (42.0-75.2); PLATELET ESTIMATE INCREASED (NORMAL)
--- NOTE | 2022-11-27 08:04 | NUR ---
PATIENT OFF OF FLOOR FOR CT OF ABDOMEN
--- NOTE | 2022-11-27 08:25 | NUR ---
0700 Student nurse recieved report from primary nurse Kristen. Patient care coodinated. 0740 Pt sitting up in chair. Head to toe completed at this time (see Shift Assessment). Pt reports "I haven't really ate anything because everything is running through me." No complaints at this time, call light within reach. Will continue to monitor.
--- NOTE | 2022-11-27 08:44 | NUR ---
0700 Student nurse recieved report from primary nurse Talya at this time. patient care coordinated at this time. 0710 Patient sitting up in the chair at this time. Assessment completed at this time (see shift asssessment). Patient denies any pain, call light with in reach. Will continue to monitor.
--- NOTE | 2022-11-27 10:17 | NUR ---
Pt c/o back pain in the chair. Requested to move to bed. Student nurse assisted pt into bed for comfort. Call light within reach, will continue to monitor.
--- NOTE | 2022-11-27 13:46 | NUR ---
Toll Bridge Operator spoke with Joanne at [facility] who advised they would like to follow and continue to get updates. Patient not stable for discharge at this time.
--- NOTE | 2022-11-28 00:25 | NUR ---
Report received from RN Migdalia. Upon entering pt's room at 1915, she reports having trush, and when pt's mouth was assessed, white matter vuilding up on tongue. This was notified to the provider and new orders were placed. Shift assessment around 0. A&Ox4. Abdomen with drain on Right side withminimal discharge in bag. Dressing in place in hypogastrium is CDI. Incision with edges well approximated on RLQ is CDI. X2 karoline on LUQ and LLQ are CDI. All medication given per emar. Pt refused pain med. SCDs were placed on BLE. KEIRA PICC line is CDI. Belongings and call light are within reach.
[2022-11-28 03:38] VITALS: BP 125/55; PULSE 68; TEMP 98.1
[2022-11-28 08:02] VITALS: BP 136/54; PULSE 69; TEMP 97.6
--- NOTE | 2022-11-28 09:30 | NUR ---
rounded this am. Spoke to Dr. Nathan & lab orders entered. Patient was up and worked with therapy this am, they assisted her to the bathroom, she voided. Patient ordered a light breakfast & tolerated without nausea. Picc to Rue flushing well with good blood return for lab & medications. RLQ abcess drain compressed & flushed with 5ml NS per orders, very scant amount of purulent drainage noted. Midline with upper karoline intact. Distal part of incision open. Wet to dry dressing changed with gauze per orders. Abdomen is soft. Will monitor.
[2022-11-28 09:41] LABS: HEMOGLOBIN 10.4 g/dl (12.5-16.0); MEAN CELL VOLUME 88 fl (80.0-100.0); MEAN CORPUSCULAR HEMOGLOBIN 29 pg (27-31); MEAN CORPUSCULAR HGB CONC 33 g/dl (33.0-37.0); MEAN PLATELET VOLUME 9.9 fl (7.4-10.4); RED BLOOD COUNT 3.57 M/mm3 (4.10-5.30); REDCELL DISTRIBUTION WIDTH-CV 14.6 % (11.5-14.5)
[2022-11-28 09:55] LABS: HEMATOCRIT 31.5 % (37.0-47.0); PLATELET COUNT 621 K/mm3 (130-400)
[2022-11-28 09:56] LABS: CALCIUM 7.3 mg/dL (8.4-10.2); CREATININE, serum 0.54 mg/dL (0.57-1.11); POTASSIUM 3.6 mmol/L (3.5-4.5)
--- NOTE | 2022-11-28 10:08 | NUR ---
critical high wbc called to
--- NOTE | 2022-11-28 10:30 | NUR ---
k+ replacement per protocol. Patient has visitors at bedside. hopeful to take shower this afternoon.
[2022-11-28 10:34] LABS: EOSINOPHIL 1 % (0-4); HYPOCHROMIA 1+; LYMPHOCYTE 4 % (20.0-51.0); NEUTROPHILS 89 % (42.0-75.2); PLATELET ESTIMATE INCREASED (NORMAL)
[2022-11-28 11:54] VITALS: BP 126/42; PULSE 64; TEMP 98.5
--- NOTE | 2022-11-28 14:10 | NUR ---
Patient resting in bed. She was assisted in shower. Patient feeling refreshed after, thankful for cares given. okayed for her to shower, lines & drains were covered. New dressing to Abcess drain site, drain sponge & tegaderm. New dressing to midline. Patient spouse trimmed and filed her nails. She combed her own hair and applied lotion. Will monitor.
[2022-11-28 16:19] VITALS: BP 135/54; PULSE 64; TEMP 98.1
--- NOTE | 2022-11-28 17:42 | NUR ---
Patient resting in bed. She feels tired. She did not like her dinner tray. She was willing to try her ensure shake with ice cream, ensure milkshake provided for patient. I did speak to about patient shortness of breath, she was going to speak with radiology about pleurl effusion in AM, she was also going to review in she needed more lasix in am. Will Monitor
[2022-11-28 19:26] VITALS: BP 136/53; PULSE 68; TEMP 98.2
--- NOTE | 2022-11-28 21:00 | NUR ---
PT IN BED. TAKES HS MEDS WITHOUT PROBLEM. TONGUE IS RED WITH FEW WHITE PATCHES, PT REPORTS TONGUE FEELS BETTER AFTER STARTING NYSTATIN LIQUID. HAS RT PICC, FLUSHES WELL WITH GOOD BLOOD RETURN. ABSCESS DRAIN WITH ACCORDIAN COMPRESSED, FLUSHED WITH 5CC NS, PURULENT DRAINAGE IN BAG. DRSG TO ABD D/I. DENIES PAIN AT THIS TIME.
[2022-11-28 23:52] VITALS: BP 127/53; PULSE 64; TEMP 97.4
[2022-11-29 03:49] VITALS: BP 140/54; PULSE 65; TEMP 97.9
--- NOTE | 2022-11-29 05:41 | NUR ---
EMPTIED 15CC THICK PURULENT DRAINAGE FROM WOUND BAG. IV ANTIBIOTIC INFUSING TO RT PICC WITHOUT PROBLEM.
[2022-11-29 06:35] LABS: MEAN CELL VOLUME 88 fl (80.0-100.0); MEAN CORPUSCULAR HGB CONC 33 g/dl (33.0-37.0); MEAN PLATELET VOLUME 10.1 fl (7.4-10.4); PLATELET COUNT 625 K/mm3 (130-400); RED BLOOD COUNT 3.36 M/mm3 (4.10-5.30)
[2022-11-29 06:45] LABS: HEMATOCRIT 29.7 % (37.0-47.0); HEMOGLOBIN 9.7 g/dl (12.5-16.0); MEAN CORPUSCULAR HEMOGLOBIN 29 pg (27-31)
[2022-11-29 06:50] LABS: CALCIUM 7.5 mg/dL (8.4-10.2); CREATININE, serum 0.52 mg/dL (0.57-1.11); POTASSIUM 3.8 mmol/L (3.5-4.5)
[2022-11-29 07:30] VITALS: BP 148/59; PULSE 66; TEMP 97.9
[2022-11-29 07:33] LABS: ANISOCYTOSIS 1+; LYMPHOCYTE 3 % (20.0-51.0); NEUTROPHILS 93 % (42.0-75.2); PLATELET ESTIMATE INCREASED (NORMAL)
--- NOTE | 2022-11-29 09:16 | NUR ---
PT REFUSING TO WORK WITH THERAPY THIS AM.
--- NOTE | 2022-11-29 10:42 | NUR ---
PT UP TO RECLINER AFTER BREAKFAST. PT WANTS TO GO BACK TO BED. PROVIDED EDUCATION ON THE NECESSITY OF SITTING UP RIGHT IN RECLINER FOR LONG POSSIBLE. PO PAIN MEDS GIVE FOR DISCOMFORT SITTING IN RECLINER. DR. BARKSDALE CONSULTED AND SEEING PT AT THIS TIME. ELIQUIS HELD FOR ALL DOSE UNTIL THORACENTISIS COMPLETE.
[2022-11-29 11:27] VITALS: BP 140/47; PULSE 68; TEMP 97.9
--- NOTE | 2022-11-29 12:38 | NUR ---
Printing Press Machine Operator faxed clinical updates to [facility].
[2022-11-29 16:01] VITALS: BP 141/51; PULSE 66; TEMP 97.7
--- NOTE | 2022-11-29 16:48 | NUR ---
WET TO DRY DRESSING CHANGE AND DRAIN FLUSHING COMPLETE X2 THIS SHIFT. PT TOLERATED WELL.
[2022-11-29 19:20] VITALS: BP 111/53; PULSE 71; TEMP 98.1
--- NOTE | 2022-11-29 21:30 | NUR ---
PT IN BED. HS MEDS GIVEN. REPLACED DRSG TO LOWER INCISION OPEN AREA WITH NEW GAUZE PACKING AND COVER. RAHEEM CARES GIVEN FOR YEAST AND APPLIED NYSTATIN CREAM. PT HAS MILD THRUSH TO TONGUE, ON NYSTATIN LIQUID.
[2022-11-30 00:11] VITALS: BP 130/53; PULSE 64; TEMP 97.8
[2022-11-30 03:55] VITALS: BP 123/59; PULSE 68; TEMP 97.8
--- NOTE | 2022-11-30 05:51 | NUR ---
PT ASSISTED TO BATHROOM, VOIDS. EMPTIED 15CC PURULENT DRAINAGE FROM ACCORDIAN DRAIN. PT ASSISTED BACK TO BED.
[2022-11-30 06:29] LABS: MEAN CELL VOLUME 87 fl (80.0-100.0); MEAN CORPUSCULAR HGB CONC 34 g/dl (33.0-37.0); PLATELET COUNT 679 K/mm3 (130-400); RED BLOOD COUNT 3.28 M/mm3 (4.10-5.30); REDCELL DISTRIBUTION WIDTH-CV 14.9 % (11.5-14.5)
[2022-11-30 06:31] LABS: HEMATOCRIT 28.5 % (37.0-47.0); HEMOGLOBIN 9.6 g/dl (12.5-16.0); MEAN CORPUSCULAR HEMOGLOBIN 29 pg (27-31)
[2022-11-30 06:40] LABS: CALCIUM 7.4 mg/dL (8.4-10.2); CREATININE, serum 0.56 mg/dL (0.57-1.11); POTASSIUM 3.5 mmol/L (3.5-4.5)
[2022-11-30 07:37] LABS: BAND 1 % (0-10); LYMPHOCYTE 6 % (20.0-51.0); NEUTROPHILS 89 % (42.0-75.2); PLATELET ESTIMATE INCREASED (NORMAL)
--- NOTE | 2022-11-30 08:00 | NUR ---
Pt awake and laying in bed. Morning medications administered per eMAR. Shift assessment completed. Telemetry remains on. PICC in RUE remains CDI. RUE remains larger than LUE; aware. Pt has x1 suture on L upper chest; plans to remove. Dressing on ABD (midline) remains CDI. ABD drain remains intact with no drainage noted. Denies c/o pain at this time. Call light within reach.
[2022-11-30 08:54] VITALS: BP 123/54; PULSE 70; TEMP 97.8
--- NOTE | 2022-11-30 10:00 | NUR ---
ABD drain flushed with 5cc per orders. ABD midline dressing replaced; packed with 4x4 per orders. Moderate amount of serosanguinous fluid noted.
--- NOTE | 2022-11-30 11:38 | NUR ---
A referral was sent to [facility]. Korey, with [facility], arrived to the hospital and met with the patient. Korey reports that they are able to accept the patient and that the patient is agreeable to going to [facility], but would like to talk to her first. The patient is planned to have a thoracentesis tomorrow morning.
[2022-11-30 12:25] VITALS: BP 118/59; PULSE 71; TEMP 97.3
[2022-11-30 16:25] VITALS: BP 149/49; PULSE 65; TEMP 97.9
[2022-11-30 19:40] VITALS: BP 125/51; PULSE 71; TEMP 98.4
--- NOTE | 2022-11-30 22:00 | NUR ---
PT IN BED. HS MEDS GIVEN. DRSG TO LOWER MIDLINE CHANGED, REPLACED 4X4 GAUZE PACKING AND COVERED WITH GAUZE. MINIMAL DRAINAGE NOTED. HAS RT ABSCESS DRAIN TO ACCORDIAN COMPRESSION, MINIMAL OUTPUT. RT PICC INTACT. PT DENIES SHORTNESS OF BREATH WITH ACTIVITY. THRUSH IMPROVED AND MINIMAL REDNESS TO VULVA. DENIES PAIN AT THIS TIME.
[2022-12-01 00:19] VITALS: BP 120/54; PULSE 68; TEMP 97.8
[2022-12-01 03:33] VITALS: BP 133/58; PULSE 71; TEMP 98.4
--- NOTE | 2022-12-01 06:00 | NUR ---
IV UNASYN INFUSING TO RT PICC WITHOUT PROBLEM. EMPTIED 15CC FROM DRAIN BAG. PT DENIES NEEDS AT THIS TIME.
[2022-12-01 06:28] LABS: MEAN CELL VOLUME 88 fl (80.0-100.0); MEAN CORPUSCULAR HGB CONC 33 g/dl (33.0-37.0); MEAN PLATELET VOLUME 9.5 fl (7.4-10.4); PLATELET COUNT 705 K/mm3 (130-400); RED BLOOD COUNT 3.39 M/mm3 (4.10-5.30); REDCELL DISTRIBUTION WIDTH-CV 15.2 % (11.5-14.5)
[2022-12-01 06:31] LABS: HEMATOCRIT 29.7 % (37.0-47.0); HEMOGLOBIN 9.8 g/dl (12.5-16.0); MEAN CORPUSCULAR HEMOGLOBIN 29 pg (27-31)
[2022-12-01 06:36] LABS: INR 1.4 (0.8-3.0); PROTHROMBIN TIME 16.5 SECONDS (9.7-12.8)
[2022-12-01 06:45] LABS: CALCIUM 7.4 mg/dL (8.4-10.2); CREATININE, serum 0.55 mg/dL (0.57-1.11); POTASSIUM 3.6 mmol/L (3.5-4.5)
[2022-12-01 07:14] LABS: BAND 5 % (0-10); LYMPHOCYTE 8 % (20.0-51.0); NEUTROPHILS 82 % (42.0-75.2)
[2022-12-01 07:15] LABS: OVALOCYTES 1+
[2022-12-01 08:00] VITALS: BP 113/72; PULSE 77; TEMP 98.1
[2022-12-01 09:51] LABS: PLEURAL FLUID APPEARANCE HAZY; PLEURAL FLUID COLOR YELLOW; PLEURAL FLUID RBC 2000 /mm3 (0-0); PLEURAL FLUID WBC 1347 /mm3
--- NOTE | 2022-12-01 11:03 | NUR ---
PT HAD THORACENTISIS THIS AM. APPROX 1100 MLS REMOVED FROM PT. FLUIDS SENT TO LAB PER ORDERS. CHEST XRAY COMPLETE. PT ACCEPTED TO [facility], DOES NOT WANT PT SENT TO [facility]. SOCIAL WORK AWARE.
[2022-12-01 12:00] VITALS: BP 132/48; PULSE 79; TEMP 97.8
[2022-12-01] MEDS ORDERED: ELIQUIS 5MG PO (12:35)
[2022-12-01] MEDS ORDERED: LASIX 20MG TABL20 MG PO (12:40)
[2022-12-01] MEDS ORDERED: CORDARONE200 MG/TAB PO (12:42)
--- NOTE | 2022-12-01 13:07 | NUR ---
NOTIFIED [facility] PA'S OF INCREASED BP, GAVE APRESSOLINE ORDERED. WILL RECHECK BP DURING ROUTINE BLOOD VITALS. GAVE CONTACT INFO FOR ITALIA, PT'S DAUGHTER, TO PAS FOR DR. BARKSDALE TO CONTACT HER.
--- NOTE | 2022-12-01 13:58 | NUR ---
Korey, at [facility], reports that they have a bed available today. SW notified the clinical team. The hospitalist talked to the patient and her about [facility] and they are not agreeable with the transfer. The patient is to discharge today, 12/01, to [facility] in [place]. Transportation was scheduled around 1540, via [facility]. HADLEY notified the patient, her , her RN, and Korey at [facility] of the transport time. HADLEY presented the EMS consent form to the patient. The patient verbalized understanding and gave HADLEY approval to sign the form on her behalf. No additional needs at this time.
--- NOTE | 2022-12-01 15:41 | NUR ---
PT TRANSFERED TO [facility] IN [place]. EMS TRANSFER. TRANSFERED WITH PICC LINE AND DRAIN INPLACE AT THIS TIME.
--- NOTE | 2022-12-01 15:54 | NUR ---
CALLED REPORT TO INGRIS CHEN @ [facility].
[2022-12-02 00:12] LABS: BODY FLUID PH (AMS) 8 (())
== END 2022-12-01 15:45 | DRG 329 ==
LOC: COL.ER 08:52 → ICU 11:31 → SURG 11:31 → COL.ER 11:31 → ICU 11-17 05:04 → SURG 11-17 05:04 → ICU 11-17 06:38 → SURG 11-20 16:06
PROVIDERS: Family Medicine; Internal Medicine; Internal Medicine Pulmonary Disease; Physician Assistant; Student in an Organized Health Care Education/Training Program; ADMIT Surgery
PROC: 0DB80ZZ Excision of Small Intestine, Open Approach (ICD-10-PCS; principal; 2022-11-16 16:15)
PROC: 0DNU4ZZ Release Omentum, Percutaneous Endoscopic Approach (ICD-10-PCS; 2022-11-16 16:15)
PROC: 0YQ70ZZ Repair Right Femoral Region, Open Approach (ICD-10-PCS; 2022-11-16 16:15)
PROC: 0YQ50ZZ Repair Right Inguinal Region, Open Approach (ICD-10-PCS; 2022-11-16 16:15)
PROC: 02H633Z Insertion of Infusion Device into Right Atrium, Percutaneous Approach (ICD-10-PCS; 2022-11-17)
PROC: 0JH602Z Insertion of Monitoring Device into Chest Subcutaneous Tissue and Fascia, Open Approach (ICD-10-PCS; 2022-11-20)
PROC: 0W9F30Z Drainage of Abdominal Wall with Drainage Device, Percutaneous Approach (ICD-10-PCS; 2022-11-23)
PROC: 0W993ZX Drainage of Right Pleural Cavity, Percutaneous Approach, Diagnostic (ICD-10-PCS; 2022-12-01)
DX: K40.40 Unilateral inguinal hernia, with gangrene, not specified as recurrent (principal); K41.40 Unilateral femoral hernia, with gangrene, not specified as recurrent; K65.1 Peritoneal abscess; I48.92 Unspecified atrial flutter; J90 Pleural effusion, not elsewhere classified; J98.11 Atelectasis; K91.89 Other postprocedural complications and disorders of digestive system; K56.7 Ileus, unspecified; Z66 Do not resuscitate; T81.43XA Infection following a procedure, organ and space surgical site, initial encounter; G47.00 Insomnia, unspecified; F32.A Depression, unspecified; F41.9 Anxiety disorder, unspecified; K21.9 Gastro-esophageal reflux disease without esophagitis; I95.9 Hypotension, unspecified; B37.31 Acute candidiasis of vulva and vagina; E83.42 Hypomagnesemia; E87.6 Hypokalemia; I10 Essential (primary) hypertension; I34.0 Nonrheumatic mitral (valve) insufficiency; I49.5 Sick sinus syndrome; I48.0 Paroxysmal atrial fibrillation; E87.70 Fluid overload, unspecified; B95.2 Enterococcus as the cause of diseases classified elsewhere; D75.839 Thrombocytosis, unspecified; J44.9 Chronic obstructive pulmonary disease, unspecified; F10.90 Alcohol use, unspecified, uncomplicated; E78.00 Pure hypercholesterolemia, unspecified; D72.829 Elevated white blood cell count, unspecified; Z88.1 Allergy status to other antibiotic agents; Z88.8 Allergy status to other drugs, medicaments and biological substances; Z90.710 Acquired absence of both cervix and uterus; Z90.49 Acquired absence of other specified parts of digestive tract; Z87.891 Personal history of nicotine dependence
CPT/HCPCS: A4314; A9284; C1729; C1751; C1764; C1769; J0282; J0295; J0330; J1100; J1170; J1200; J1450; J1644; J1940; J1956; J2250; J2270; J2370; J2405; J2704; J3010; J3475; J3480; J7030; J7040; J7060; J7120; Q9967

== ENCOUNTER → 2023-10-26 | Outpatient (CLI) | payer MEDICARE, OTHER ==
[~2023-10-26] MED LIST changes: +ADDERALL XR20 MG PO; +CORDARONE200 MG/TAB PO; +ELIQUIS 5MG PO; +ESTRACE 1MG1 MG/TAB PO; +LASIX 20MG TABL20 MG PO; +LEXAPRO 10MG10 MG PO; +LIPITOR20 MG PO; +PROTONIX 40MG T40 MG PO
== END ==
LOC: COL.RAD 08:38
DX: Z12.2 Encounter for screening for malignant neoplasm of respiratory organs (principal); Z87.891 Personal history of nicotine dependence

== ENCOUNTER → 2024-05-30 | Outpatient (CLI) | payer MEDICARE | LOC: COL.RAD 13:15 | DX: I67.82 Cerebral ischemia (principal); G31.9 Degenerative disease of nervous system, unspecified; R26.89 Other abnormalities of gait and mobility; R25.1 Tremor, unspecified ==